=== PATIENT | female | born 1950 | race Caucasian/White ===

== ENCOUNTER → 2017-02-09 | Outpatient (CLI) | payer MEDICARE, OTHER | LOC: MC.RAD 11:19 | DX: Z12.31 Encounter for screening mammogram for malignant neoplasm of breast (principal) ==

== ENCOUNTER → 2018-03-22 | Outpatient (CLI) | payer MEDICARE, OTHER | LOC: MC.RAD 08:31 | DX: Z12.31 Encounter for screening mammogram for malignant neoplasm of breast (principal) ==

== ENCOUNTER → 2018-09-03 | Outpatient (CLI) | payer MEDICARE, OTHER ==
[~2018-09-03] VITALS: Ht 163.8 cm; Wt 102.5 kg
[2018-09-03 12:14] VITALS: BP 124/76; PULSE 80
== END ==
LOC: LIGHT 11:42
DX: F50.81 Binge eating disorder (principal); E66.9 Obesity, unspecified; Z68.38 Body mass index [BMI] 38.0-38.9, adult; Z71.3 Dietary counseling and surveillance
CPT/HCPCS: G0463

== ENCOUNTER → 2018-09-16 | Outpatient (CLI) | payer MEDICARE, OTHER | LOC: LIGHT 11:39 | DX: F50.81 Binge eating disorder (principal); E66.9 Obesity, unspecified; Z68.38 Body mass index [BMI] 38.0-38.9, adult; Z71.3 Dietary counseling and surveillance ==

== ENCOUNTER → 2018-10-10 | Outpatient (CLI) | payer MEDICARE, OTHER ==
[~2018-10-10] VITALS: Ht 163.8 cm; Wt 103.0 kg
[2018-10-10 13:59] VITALS: BP 116/74; PULSE 92
== END ==
LOC: LIGHT 13:24
DX: F50.81 Binge eating disorder (principal); E66.9 Obesity, unspecified; Z68.38 Body mass index [BMI] 38.0-38.9, adult; Z71.3 Dietary counseling and surveillance
CPT/HCPCS: G0463

== ENCOUNTER → 2018-10-14 | Outpatient (CLI) | payer MEDICARE, OTHER | LOC: LIGHT 10:45 | DX: F50.81 Binge eating disorder (principal); E66.9 Obesity, unspecified; Z68.38 Body mass index [BMI] 38.0-38.9, adult; Z71.3 Dietary counseling and surveillance ==

== ENCOUNTER → 2018-10-31 | Outpatient (CLI) | payer MEDICARE, OTHER ==
[~2018-10-31] VITALS: Ht 163.8 cm; Wt 96.2 kg
[2018-10-31 16:32] VITALS: BP 126/90; PULSE 88
== END ==
LOC: LIGHT 12:54
DX: F50.81 Binge eating disorder (principal); E66.9 Obesity, unspecified; Z68.35 Body mass index [BMI] 35.0-35.9, adult; Z71.3 Dietary counseling and surveillance
CPT/HCPCS: G0463

== ENCOUNTER → 2018-12-19 | Outpatient (CLI) | payer MEDICARE, OTHER ==
[~2018-12-19] VITALS: Ht 163.8 cm; Wt 93.4 kg
[2018-12-19 09:14] VITALS: BP 144/86; PULSE 68
== END ==
LOC: LIGHT 11-14 14:27
DX: F50.81 Binge eating disorder (principal); E66.9 Obesity, unspecified; Z68.34 Body mass index [BMI] 34.0-34.9, adult; Z71.3 Dietary counseling and surveillance
CPT/HCPCS: G0463

== ENCOUNTER → 2019-08-08 | Outpatient (CLI) | payer MEDICARE, OTHER | LOC: MC.RAD 06-16 07:45 | DX: Z12.31 Encounter for screening mammogram for malignant neoplasm of breast (principal) ==

== ENCOUNTER → 2021-10-12 | Outpatient (CLI) | payer MEDICARE, OTHER | LOC: MC.RAD 07:43 | DX: Z12.31 Encounter for screening mammogram for malignant neoplasm of breast (principal); R92.0 Mammographic microcalcification found on diagnostic imaging of breast ==

== ENCOUNTER → 2021-10-14 | Outpatient (CLI) | payer MEDICARE, OTHER | LOC: MC.RAD 09:17 | DX: R92.0 Mammographic microcalcification found on diagnostic imaging of breast (principal); R92.8 Other abnormal and inconclusive findings on diagnostic imaging of breast ==

== ENCOUNTER → 2021-10-26 | Outpatient (CLI) | payer MEDICARE, OTHER | LOC: MC.RAD 06:46 | DX: Z12.31 Encounter for screening mammogram for malignant neoplasm of breast (principal) ==

== ENCOUNTER 2024-04-04 11:58 | Inpatient (IN) | payer MEDICARE, OTHER ==
[~2024-04-04] VITALS: Ht 160 cm; Wt 111.2 kg
[2024-04-04 13:00] VITALS: BP_SYST 163
--- NOTE | 2024-04-04 13:30 | NUR ---
Patient to room 331 from [place] by EMS. A&Ox4. VSS. IV CDI. LF arm in sling. STACY red, warm, swollen. Denies pain and discomfort. NPO since midnight. Nurse oriented the patient to location, call light and room. Daughter at the bedside. No further needs expressed. Call light within reach
[2024-04-04] MEDS ORDERED: ULTRAM 50MG TAB50 MG PO (13:38)
[2024-04-04] MEDS ORDERED: VITAMINC1000TA PO (13:43)
[2024-04-04] MEDS ORDERED: MULTI VITAMINS1 TAB PO (13:44)
[2024-04-04 13:47] VITALS: BP 163/88; PULSE 71; TEMP 98.8
[2024-04-04 15:57] LABS: BASO % 0.2 % (0.0-2.0); EOS # 1.2 K/mm3 (0.0-0.7); EOS % 7.6 % (0.0-4.0); GRAN # 11.9 K/mm3 (1.4-6.5); GRAN % 77.6 % (42.2-75.2); HEMATOCRIT 37.4 % (37.0-47.0); HEMOGLOBIN 11.8 g/dl (12.5-16.0); LYMPH % 6.2 % (20.0-51.0); MEAN CELL VOLUME 87 fl (80.0-100.0); MEAN CORPUSCULAR HEMOGLOBIN 27 pg (27-31); MEAN CORPUSCULAR HGB CONC 32 g/dl (33.0-37.0); MEAN PLATELET VOLUME 9.7 fl (7.4-10.4); MONO # 1.2 K/mm3 (0.1-0.6); MONO % 7.9 % (1.7-9.3); PLATELET COUNT 243 K/mm3 (130-400); RED BLOOD COUNT 4.31 M/mm3 (4.10-5.30); REDCELL DISTRIBUTION WIDTH-CV 13.8 % (11.5-14.5)
[2024-04-04 16:11] LABS: CREATININE, serum 0.56 mg/dL (0.57-1.11)
[2024-04-04 16:25] VITALS: BP 118/68; PULSE 108; TEMP 98.9
[2024-04-04 17:00] VITALS: BP_SYST 118
[2024-04-04] MEDS ORDERED: Docusate Sodium 100 MG CAP PO PRN (18:00)
[2024-04-04] MEDS ORDERED: Ondansetron 4 MG/2 ML VIAL IV PRN (18:00)
[2024-04-04] MEDS ORDERED: Polyethylene Glycol 3350 17 GM PDS PO PRN (18:00)
[2024-04-04] MEDS ORDERED: Acetaminophen 325 MG TAB PO PRN (18:00)
[2024-04-04] MEDS ORDERED: cefTRIAXone 1 G in Water For Injection,Sterile 10 ML IV SCH (18:30)
[2024-04-04 19:37] VITALS: BP 137/76; PULSE 80; TEMP 98.3
[2024-04-04 20:00] VITALS: BP_SYST 137
[2024-04-04] MEDS ORDERED: diphenhydrAMINE 25 MG CAP PO ONE (20:00)
[2024-04-04] MEDS ORDERED: Acetamin/Butalbital/Caffeine 325-50-40 MG TAB PO PRN (20:00)
[2024-04-05] VITALS (10 sets, daily range): BP systolic 123–147; BP diastolic 70–92; PULSE 90–105; TEMP 98.2–99.7
[2024-04-05 06:47] LABS: BASO % 0.1 % (0.0-2.0); EOS # 1.9 K/mm3 (0.0-0.7); EOS % 13.5 % (0.0-4.0); GRAN # 9.3 K/mm3 (1.4-6.5); GRAN % 67.2 % (42.2-75.2); LYMPH # 1.1 K/mm3 (1.2-3.4); LYMPH % 8.2 % (20.0-51.0); MEAN CELL VOLUME 85 fl (80.0-100.0); MEAN CORPUSCULAR HGB CONC 33 g/dl (33.0-37.0); MEAN PLATELET VOLUME 10.2 fl (7.4-10.4); MONO # 1.5 K/mm3 (0.1-0.6); MONO % 10.6 % (1.7-9.3); PLATELET COUNT 322 K/mm3 (130-400); REDCELL DISTRIBUTION WIDTH-CV 14.1 % (11.5-14.5)
[2024-04-05 06:58] LABS: HEMATOCRIT 29.6 % (37.0-47.0); HEMOGLOBIN 9.7 g/dl (12.5-16.0); MEAN CORPUSCULAR HEMOGLOBIN 28 pg (27-31)
[2024-04-05 07:03] LABS: ALBUMIN 2.3 g/dL (3.4-4.8); BILIRUBIN,TOTAL 0.3 mg/dL (0.2-1.2); CALCIUM 8.6 mg/dL (8.4-10.2); CREATININE, serum 0.57 mg/dL (0.57-1.11); TOTAL PROTEIN 5.8 g/dl (6.2-8.1)
[2024-04-05] MEDS ORDERED: Potassium Bicarbonate/Citrate 20 MEQ Effervescent TAB PO SCH (07:30)
[2024-04-05] MEDS ORDERED: *Potassium Replacement Protocol MC SCH (07:30)
--- NOTE | 2024-04-05 08:00 | NUR ---
Patient sitting up in bed, A&Ox4. VSS. IV CDI. LF arm in sling. Denies pain and discomfort. Call light within reach
--- NOTE | 2024-04-05 09:51 | NUR ---
SW met with patient to complete intake and discuss discharge planning. Patient confirmed that she resides in [place] and her PCP is Dr. Andre and pharmacy of choice is [facility]). Patient reports her NOK is daughter Betsy Mccain [phone]. Patient informed SW that she does have DPOA on file at her home. Patient shared that she is independent with ADLs and currently does not use any DMEs. Patient is anticipating to discharge back to her home, pending any further medical recommendations at this time.
[2024-04-05] MEDS ORDERED: diphenhydrAMINE 2%/Zinc Acetate 0.1% Cream 28.3 GM TUBE TP SCH (13:00)
[2024-04-05] MEDS ORDERED: diphenhydrAMINE 2%/Zinc Acetate 0.1% Cream 28.3 GM TUBE TP PRN (13:00)
--- NOTE | 2024-04-05 13:50 | NUR ---
Data: Patient accepted spiritual care visit offered during Co Teacher rounds. Patient has had several visitors and calls throughout the day. She was playing solitaire on her phone when Co Teacher arrived. Patient attends [employer]. Father Nanda is her siderographer. Assessment: Patient is tired from the full day; desired prayer. Plan of Care: Co Teacher offered a prayer. Chaplains will remain available as needed/requested while Patient is admitted to this hospital.
[2024-04-05] MEDS ORDERED: Potassium Bicarbonate/Citrate 20 MEQ Effervescent TAB PO ONE (17:30)
[2024-04-05] MEDS ORDERED: diphenhydrAMINE 25 MG CAP PO SCH (21:51)
[2024-04-06] VITALS (11 sets, daily range): BP systolic 134–150; BP diastolic 74–91; PULSE 75–97; TEMP 97.5–99.1
[2024-04-06] MEDS ORDERED: diphenhydrAMINE 25 MG CAP PO PRN ×2 (05:45→12:45)
--- NOTE | 2024-04-06 05:49 | NUR ---
PT C/O FREQUENT ALL OVER ITCHING, LAST NOC REC'D ORDER FOR BENADRYL 25MG PO Q HS BUT PT WANTING ANOTHER DOSE, MIGEUL YANES NOTIFIED, ORDER CHANGED TO Q8H PRN FOR ITCHING.
[2024-04-06 06:44] LABS: MEAN CELL VOLUME 86 fl (80.0-100.0); MEAN CORPUSCULAR HGB CONC 32 g/dl (33.0-37.0); MEAN PLATELET VOLUME 9.4 fl (7.4-10.4); PLATELET COUNT 322 K/mm3 (130-400); RED BLOOD COUNT 3.51 M/mm3 (4.10-5.30); REDCELL DISTRIBUTION WIDTH-CV 14.1 % (11.5-14.5)
[2024-04-06 07:05] LABS: HEMOGLOBIN 9.7 g/dl (12.5-16.0); MEAN CORPUSCULAR HEMOGLOBIN 28 pg (27-31)
[2024-04-06 07:06] LABS: ALBUMIN 2.3 g/dL (3.4-4.8); BILIRUBIN,TOTAL 0.3 mg/dL (0.2-1.2); C-REACTIVE PROTEIN 20.14 mg/dL (0.00-0.50); CALCIUM 8.7 mg/dL (8.4-10.2); CREATININE, serum 0.53 mg/dL (0.57-1.11); MAGNESIUM 1.9 mg/dL (1.6-2.6); POTASSIUM 3.6 mEq/L (3.5-4.5); TOTAL PROTEIN 5.8 g/dl (6.2-8.1)
--- NOTE | 2024-04-06 07:35 | NUR ---
Patient sitting up in bed, A&Ox4. VSS. IV CDI. Denies pain, reports discomfort in LF arm. Sling in arm. Call light within reach
[2024-04-06] MEDS ORDERED: Potassium Bicarbonate/Citrate 20 MEQ Effervescent TAB PO SCH (07:45)
[2024-04-06 09:46] LABS: EOSINOPHIL 23 % (0-4); HYPOCHROMIA 1+; LYMPHOCYTE 20 % (20.0-51.0); NEUTROPHILS 52 % (42.0-75.2); PLATELET ESTIMATE NORMAL (NORMAL)
[2024-04-07] VITALS (12 sets, daily range): BP systolic 115–167; BP diastolic 67–105; PULSE 75–106; TEMP 97.9–98.6
--- NOTE | 2024-04-07 06:13 | NUR ---
VANC T DRAWN PER [employer]IONICS SYSTEMS TECHNICIAN, AWAITING RESULTS BEFORE STARTING 0600 DOSE.
[2024-04-07 06:14] LABS: BASO # 0.1 K/mm3 (0.0-0.2); BASO % 0.5 % (0.0-2.0); EOS # 1.8 K/mm3 (0.0-0.7); EOS % 17.2 % (0.0-4.0); GRAN # 5.6 K/mm3 (1.4-6.5); GRAN % 53.3 % (42.2-75.2); HEMOGLOBIN 10.1 g/dl (12.5-16.0); LYMPH # 1.5 K/mm3 (1.2-3.4); LYMPH % 14.7 % (20.0-51.0); MEAN CELL VOLUME 85 fl (80.0-100.0); MEAN CORPUSCULAR HEMOGLOBIN 27 pg (27-31); MEAN CORPUSCULAR HGB CONC 32 g/dl (33.0-37.0); MONO # 1.4 K/mm3 (0.1-0.6); MONO % 13.7 % (1.7-9.3); PLATELET COUNT 376 K/mm3 (130-400); RED BLOOD COUNT 3.68 M/mm3 (4.10-5.30); REDCELL DISTRIBUTION WIDTH-CV 14.3 % (11.5-14.5)
[2024-04-07 06:31] LABS: HEMATOCRIT 31.3 % (37.0-47.0)
[2024-04-07 06:34] LABS: ALBUMIN 2.4 g/dL (3.4-4.8); BILIRUBIN,TOTAL 0.2 mg/dL (0.2-1.2); C-REACTIVE PROTEIN 15.75 mg/dL (0.00-0.50); CALCIUM 8.9 mg/dL (8.4-10.2); CREATININE, serum 0.6 mg/dL (0.57-1.11); POTASSIUM 3.8 mEq/L (3.5-4.5); TOTAL PROTEIN 5.9 g/dl (6.2-8.1)
--- NOTE | 2024-04-07 08:00 | NUR ---
PATIENT IS A&O. VSS. REPORTS TOLERABLE DISCOMFORT IN LUE BUT REPORTS SHE WILL WANT A PAIN PILL WHEN SHES DUE FOR IT. LUE IS RED/WARM/SWOLLEN AND GETTING IV ABX FOR CELLULITIS. ABD SLING TO LUE. RIGHT FORARM IV TO INT. UNIVERSITY LIBRARIAN GAVE PO BENADRYL BEFORE SHIFT CHANGE, SEE MAR. STUDENT NURSE GIVING MEDS, SEE STUDENT CHARTING. HEAD TO TOE ASSESSMENT COMPLETE. NO OTHER NEEDS AT THIS TIME. CALL LIGHT IN REACH.
[2024-04-07] MEDS ORDERED: MOBIC15 MG PO (08:58)
[2024-04-07] MEDS ORDERED: Potassium Bicarbonate/Citrate 20 MEQ Effervescent TAB PO ONE (09:00)
--- NOTE | 2024-04-07 11:06 | NUR ---
generator worker notes PT recomended outpatient PT for patient. SW met with pt who states [facility] established her with [facility] already. Discharge Plan: home with continued OP
--- NOTE | 2024-04-07 21:34 | NUR ---
PT RESTING IN CHAIR, ALERT AND ORIENTEDX4. RATES PAIN 3/10 IN THE LEFT SHOULDER. ASSESSED PT. SHOULDER IS REDDENED AND HARD AROUND SUTURE SITE AREA. CALLED BEKAH TO LET HER KNOW DBP >100. NO NEW ORDERS AT THIS TIME. NO OTHER COMPLAINTS AT THIS TIME. CALL LIGHT WITHIN REACH.
[2024-04-08] VITALS (11 sets, daily range): BP systolic 124–154; BP diastolic 73–81; PULSE 86–99; TEMP 97.6–99.6
--- NOTE | 2024-04-08 02:00 | NUR ---
pt a&ox4 resting in bed. vss. no pain at this time. redness and swelling present to LUE, sling in place. INT to right forearm patent. no needs at this time. call light in reach.
[2024-04-08 06:19] LABS: BASO # 0.1 K/mm3 (0.0-0.2); BASO % 0.4 % (0.0-2.0); EOS % 16.2 % (0.0-4.0); GRAN # 6.9 K/mm3 (1.4-6.5); GRAN % 55.3 % (42.2-75.2); HEMOGLOBIN 10.8 g/dl (12.5-16.0); LYMPH # 1.9 K/mm3 (1.2-3.4); LYMPH % 15.1 % (20.0-51.0); MEAN CELL VOLUME 84 fl (80.0-100.0); MEAN CORPUSCULAR HEMOGLOBIN 28 pg (27-31); MEAN CORPUSCULAR HGB CONC 33 g/dl (33.0-37.0); MONO # 1.5 K/mm3 (0.1-0.6); PLATELET COUNT 437 K/mm3 (130-400); RED BLOOD COUNT 3.91 M/mm3 (4.10-5.30); REDCELL DISTRIBUTION WIDTH-CV 14.4 % (11.5-14.5)
[2024-04-08 06:30] LABS: CALCIUM 9.1 mg/dL (8.4-10.2); CREATININE, serum 0.58 mg/dL (0.57-1.11); POTASSIUM 4.2 mEq/L (3.5-4.5)
--- NOTE | 2024-04-08 09:14 | NUR ---
PT INDEPENDENT IN ROOM. OUT TO [facility] WITH [facility]. PT REPORTS DR. SANTANA HAS SIGNED OFF AND PT TO RECIEVE OUT PT ABX X6 WEEKS. SHOULDER CDI OVER INCISION.
--- NOTE | 2024-04-08 10:47 | NUR ---
coating line worker attended interdisciplinary rounding and was informed pt will likely need IV Antibiotics. Hospitalist team advised that ID and Ortho need to further discuss and clarify reccomendations and treatment. SW will follow until this is achieved. MIGUEL Allen and Dr. Pittman report pt will discharge tomorrow due to WBC being elevated today. LORE met with pt previously and she reports wanting to go to the [facility] if she needs IV Antibiotics. She reports her daughter has medical experience, but lives in [place] and could not assist her as often at home. LORE informed pt she will keep her updated once they know more on the dose/frequency. Discharge Plan: home with [facility] OP and potential IV ABOX
--- NOTE | 2024-04-08 18:54 | NUR ---
RECEIVED CHANGE OF SHIFT REPORT FROM DAY SHIFT NURSE. PATIENT UP IN CHAIR, VISITOR IN ROOM, PATIENT DENIES ANY NEEDS OR CONCERNS AT TIME OF REPORT.
--- NOTE | 2024-04-08 20:00 | NUR ---
DECREASED ROM/STRENGTH TO LUE DUE TO LEFT SHOULDER BRACE. INT TO RFA IN PLACE. DENIES CHEST PAIN/SHORTNESS OF BREATH/NAUSEA CURRENTLY. DENIES NUMBNESS/TINGLING TO BUE AT THIS TIME. PATIENT UP IN ROOM INDEPENDENTLY WITH NO REPORTED COMPLAINTS OR CONCERNS.
[2024-04-09] VITALS (8 sets, daily range): BP systolic 129–151; BP diastolic 80–84; PULSE 87–97; TEMP 97.8–99.2
--- NOTE | 2024-04-09 06:59 | NUR ---
CHANGE OF SHIFT REPORT GIVEN TO DAY SHIFT NURSECHAD.
--- NOTE | 2024-04-09 08:00 | NUR ---
PATIENT IS A&O. VSS. REPORTS MINIMAL TO NO DISCOMFORT IN LUE THIS AM. ABD SLING INPLACE TO LUE. LUE SHOULDER/ARM PIT IS RED/SWOLLEN/WARM. IV ABX ORDERED, SEE MAR. PATIENT INQUIRING ABOUT DISCHARGE, WHY SHE HASN'T HAD A PICC LINE PLACED YET AND ANSWERS TO DISCHARGE. RN TO INQUIRE WITH HOSPITALIST TEAM AND TRY AND GET PATIENT ANSWERS TODAY. OVERALL, PATIENT STATES SHES FEELING GOOD. INDEPENDENT IN HER ROOM. TOLERATING AHA DIET. UP IN BEDSIDE CHAIR WITH BREAKFAST TRAY. AM MEDS GIVEN. HEAD TO TOE ASSESSMENT COMPLETE. NO OTHER NEEDS AT THIS TIME. CALL LIGHT IN REACH.
[2024-04-09 08:09] LABS: HEMOGLOBIN 10.9 g/dl (12.5-16.0); MEAN CELL VOLUME 86 fl (80.0-100.0); MEAN CORPUSCULAR HEMOGLOBIN 27 pg (27-31); MEAN CORPUSCULAR HGB CONC 32 g/dl (33.0-37.0); MEAN PLATELET VOLUME 8.5 fl (7.4-10.4); PLATELET COUNT 438 K/mm3 (130-400); RED BLOOD COUNT 4.02 M/mm3 (4.10-5.30); REDCELL DISTRIBUTION WIDTH-CV 14.3 % (11.5-14.5)
[2024-04-09 08:16] LABS: HEMATOCRIT 34.4 % (37.0-47.0)
[2024-04-09 08:29] LABS: BAND 3 % (0-10); EOSINOPHIL 15 % (0-4); LYMPHOCYTE 21 % (20.0-51.0); NEUTROPHILS 57 % (42.0-75.2)
[2024-04-09 08:30] LABS: PLATELET ESTIMATE NORMAL (NORMAL)
[2024-04-09 08:44] LABS: C-REACTIVE PROTEIN 11.69 mg/dL (0.00-0.50); CREATININE, serum 0.58 mg/dL (0.57-1.11); POTASSIUM 3.9 mEq/L (3.5-4.5)
--- NOTE | 2024-04-09 10:29 | NUR ---
CALLED [facility] FOR PICC LINE PLACEMENT TODAY.
[2024-04-09] MEDS ORDERED: CUBICIN 500MG500 MG IV (10:48)
[2024-04-09] MEDS ORDERED: ROCEPHIN VIA1 G/VIAL IJ (10:48)
[2024-04-09] MEDS ORDERED: cefTRIAXone 1 G in Water For Injection,Sterile 10 ML IV SCH (11:30)
[2024-04-09] MEDS ORDERED: DAPTOMYCIN IV SCH (12:00)
[2024-04-09] MEDS ORDERED: NS IV SCH (12:00)
--- NOTE | 2024-04-09 13:00 | NUR ---
[facility] NOW AT BEDSIDE TO PLACE PICC LINE
[2024-04-09] MEDS ORDERED: NS Flush 10 ML SYRINGE (PICC Line - 10 mL PRN) ICA (14:45)
--- NOTE | 2024-04-09 15:00 | NUR ---
PATIENT HAS PICC LINE INPLACE AND HER DAUGHTER IS NOW HERE TO PICK HER UP. GAVE DISCHARGE INSTRUCTIONS, PRINTED SCRIPTS, AND DISCUSSED F/U APTS. PATIENT ALREADY HAD HER IV ABX FOR TODAY AND WILL START OUTPATIENT ABX TOMORROW. ANSWERED QUESTIONS/CONCERNS. PATIENT IS DRESSED, PACKED AND ESCORTED OUT VIA WC TO PERSONAL VEHICLE.
--- NOTE | 2024-04-09 15:38 | NUR ---
Watch Adjuster spoke with VINOD Mcmanus at the [facility] and faxed clinicals with discharge orders. SW also faxed discharge orders to [facility].
[2024-04-10] MEDS ORDERED: NORCO 325 MG-51 TAB PO (08:42)
[2024-04-10] MEDS ORDERED: NS Flush 10 ML SYRINGE (PICC Line - 10 mL Daily if not in use) ICA SCH (09:00)
== END 2024-04-09 15:00 | disposition home or self-care (01) | DRG 871 ==
LOC: SURG 11:58
PROVIDERS: Orthopaedic Surgery Sports Medicine; Physician Assistant; ADMIT Hospitalist
DX: A41.9 Sepsis, unspecified organism (principal); G93.41 Metabolic encephalopathy; L03.114 Cellulitis of left upper limb; E66.01 Morbid (severe) obesity due to excess calories; E78.1 Pure hyperglyceridemia; E87.6 Hypokalemia
CPT/HCPCS: C1751; J0696; J0878; J1650; J3370; J7050; Q3014

== ENCOUNTER 2024-04-21 08:00 | Outpatient (RCR) | payer MEDICARE ==
[2024-04-20 07:58] VITALS: BP 152/81; PULSE 93; TEMP 98.1
--- NOTE | 2024-04-20 07:58 | NUR ---
Patient to triage room 2 in ED. A&Ox4. Ambulated independently to the room. PICC RAJAN CDI. VS WNL. Tolerated infusions. No further needs expressed
[~2024-04-21] VITALS: Ht 160 cm; Wt 101.6 kg
[~2024-04-21 08:00] MED LIST: CUBICIN 500MG500 MG IV; DAPTOmycin 500 MG in NS 10 ML IV SCH; MOBIC15 MG PO; MULTI VITAMINS1 TAB PO; NORCO 325 MG-51 TAB PO; NS Flush 10 ML SYRINGE (PICC Line - 10 mL Daily if not in use) ICA SCH; NS Flush 10 ML SYRINGE (PICC Line - 10 mL PRN) ICA; ROCEPHIN VIA1 G/VIAL IJ; ULTRAM 50MG TAB50 MG PO; VITAMINC1000TA PO; cefTRIAXone 2 G in Water For Injection,Sterile 20 ML IV SCH
[2024-04-21 08:16] VITALS: BP 104/70; PULSE 94; TEMP 98
[2024-04-21] MEDS ORDERED: NORCO 325 MG-101 TAB PO (08:24)
[2024-04-21] MEDS ORDERED: CUBICIN 500MG500 MG IV (08:25)
[2024-04-21] MEDS ORDERED: ASPIRIN E.C. 8181 MG PO (08:26)
[2024-04-21] MEDS ORDERED: ROCEPHIN 2GM VIAL21 IV (08:26)
[2024-04-21] MEDS ORDERED: PROBIOTIC BLEN1 EACH PO (08:27)
== END 2024-04-21 16:16 | disposition home or self-care (01) ==
LOC: EUO 08:00
DX: Z79.899 Other long term (current) drug therapy (principal)
CPT/HCPCS: J0696; J0878